=== PATIENT | male | born 1960 | race Caucasian/White ===

== ENCOUNTER → 2020-09-04 10:39 | Outpatient (CLI) | payer BC, SELFPAY ==
--- NOTE | 2020-09-04 | DI.CT.S_ITS ---
PROCEDURE: CT HEAD/BRAIN WO CON INDICATIONS: Altered mental status, unspecified TECHNIQUE: Noncontrast 4.5 mm thick angled axial sections acquired from the foramen magnum to the vertex, with coronal and sagittal reformats. For radiation dose reduction, the following was used: automated exposure control, adjustment of mA and/or kV according to patient size. COMPARISON: None. FINDINGS: Cerebrum, Cerebellum and Brainstem: Lacunar infarct noted in the left caudate head. Moderate cerebral and cerebellar volume loss as well as moderate multifocal hypoattenuation in the deep and subcortical white matter present. No acute hemorrhage or mass effect. Foley-white distinction is preserved throughout the exam. Basal cisterns and foramen magnum are clear. Ventricles: Appropriate in size and position given the amount of cerebral atrophy. No evidence of hydrocephalus. Skull Base: The bony sella, pituitary gland and infundibulum are unremarkable. Clivus and craniovertebral relationships are appropriate. Visualized portions of external auditory canals and tympanic cavities are within normal limits. Calvarium and Scalp: No scalp soft tissue swelling. The underlying calvarium is intact without skull fracture or lytic lesion. Paranasal Sinuses: Unremarkable as visualized. No mucosal thickening or retention cyst noted. Mastoids: Unremarkable as visualized. No mastoid effusion present. Other: Atherosclerotic calcification in the cavernous portions of the distal internal carotid arteries are noted. IMPRESSION: Atrophy and chronic ischemic change without acute hemorrhage or mass effect. Left basal ganglia lacunar infarct, uncertain age. Consider follow-up MRI there is clinical suspicion for acute infarct. Dictated by: Calvin Ramirez M.D. on 09/04/2020 at 9:51 Approved by: Calvin Ramirez M.D. on 09/04/2020 at 9:57
== END ==
PROVIDERS: PCP Family Medicine; Referring Provider Family Medicine; Visit Provider Family Medicine
DX: I63.9 Cerebral infarction, unspecified (principal); R41.82 Altered mental status, unspecified; G44.309 Post-traumatic headache, unspecified, not intractable; Q67.0 Congenital facial asymmetry
CPT/HCPCS: 70450